=== PATIENT | male | born 1990 | race Caucasian/White ===

== ENCOUNTER 2019-10-28 13:57 | Emergency (ER) | payer OTHER ==
[~2019-10-28] VITALS: Ht 170.2 cm; Wt 86.6 kg
--- NOTE | 2019-10-28 15:01 | REP ---
HISTORY: Trauma. There is an oblique fracture through the diaphysis of the 5th metatarsal. This is bilateral. Additionally, there is a small plantar calcaneal heel spur right foot. IMPRESSION: 1. Bilateral 5th metatarsal fractures. 2. Small plantar calcaneal heel spur on the right. Electronically Signed by Chilo Whatley DO 10/28/2019 03:11 P
[2019-10-28] MEDS ORDERED: NORCO, ANEXSIA 5/325MG TABLET (HYDROcodone/ACETAMINOPHEN) PO ONE (15:15)
[2019-10-28] MEDS ORDERED: ACETAMINOPHEN TAB 650MG DOSE (2X325MG) PO ONE (15:15)
[2019-10-28] MEDS ORDERED: NORC1TAB7 PO (15:37)
[2019-10-28 15:46] VITALS: BP 138/82
[2019-10-28] MEDS ORDERED: wheelchair (15:49)
== END 2019-10-28 16:13 | disposition home or self-care (01) ==
LOC: M ED 13:57
DX: S92.351A Displaced fracture of fifth metatarsal bone, right foot, initial encounter for closed fracture (principal); S92.352A Displaced fracture of fifth metatarsal bone, left foot, initial encounter for closed fracture; W17.89XA Other fall from one level to another, initial encounter; Y92.018 Other place in single-family (private) house as the place of occurrence of the external cause; Z88.0 Allergy status to penicillin

== ENCOUNTER → 2023-08-15 | Outpatient (REF) ==
[~2023-08-15] MED LIST: NORC1TAB7 PO; wheelchair
== END ==
LOC: M PLAIMG 11:04
PROVIDERS: ATTEND Internal Medicine
DX: R06.02 Shortness of breath (principal)